=== PATIENT | female | born 1950 | race Caucasian/White ===

== ENCOUNTER 2022-05-23 00:05 | Observation (INO) | payer OTHER ==
[~2022-05-23] VITALS: Ht 162.6 cm; Wt 130.6 kg
[2022-05-23 00:05] VITALS: BP_SYST 138; BP_SYST 180; BP_DIAS 100; BP_DIAS 70
--- NOTE | 2022-05-23 00:05 | NUR ---
TO BED BIBA FROM HOME, WITH C/O CHEST PAIN, PRESSURE RADIATING TO HER LEFT ARM
[2022-05-23 00:34] LABS: BASOPHILS % (AUTO) 0.7 % (0.0-2.0); EOSINOPHILS # (AUTO) 0.1 K/uL (0-0.4); EOSINOPHILS % (AUTO) 2.2 % (0.0-4.0); HEMATOCRIT 40.3 % (36-48); LYMPHOCYTES # (AUTO) 1.4 K/uL (2.5-16.5); LYMPHOCYTES % (AUTO) 23.7 % (20.5-51.1); MEAN CORPUSCULAR HEMOGLOBIN 29 pg (27-31); MEAN CORPUSCULAR HGB CONC 32 g/dL (33-37); MEAN CORPUSCULAR VOLUME 88.4 fL (80-94); MONOCYTES # (AUTO) 0.7 K/uL (0.8-1.0); MONOCYTES % (AUTO) 11.1 % (1.7-9.3); NEUTROPHILS # (AUTO) 3.7 K/uL (1.8-7.7); NEUTROPHILS % (AUTO) 62.3 % (42.2-75.2); PLATELET COUNT (AUTO) 194 K/uL (140-450); RED BLOOD CELL COUNT(AUTO) 4.55 MIL/uL (4.20-5.40); RED CELL DISTRIBUTION WIDTH 15.8 % (11.6-13.7); WHITE BLOOD COUNT (AUTO) 5.9 K/uL (4.8-10.8)
--- NOTE | 2022-05-23 00:43 | NUR ---
XRAY AND EKG DONE AT BEDSIDE
--- NOTE | 2022-05-23 00:44 | NUR ---
PT IN ROOM 8 IN GOWN . 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
[2022-05-23 00:55] LABS: ALBUMIN 3.4 g/dL (3.4-5.0); ASPARTATE AMINOTRANSFERASE 16 U/L (15-37); CARBON DIOXIDE 27.7 mmol/L (21-32); CHLORIDE 107 mmol/L (98-107); CREATININE 0.8 mg/dL (0.6-1.3); GLUCOSE 99 mg/dL (74-106); POTASSIUM 3.7 mmol/L (3.5-5.1); SODIUM SERUM 140 mmol/L (136-145); TOTAL BILIRUBIN 0.6 mg/dL (0.0-1.0); UREA NITROGEN, BLOOD 17 mg/dL (7-18)
--- NOTE | 2022-05-23 01:34 | NUR ---
72YR OLD FEMALE BIB EMS C/O CP UPPER GASTRIC PAIN X1DAY. PT IS A&OX4 . STATES CP STARTED TONIGHT WHILE AT REST. DENIES SOB. GAEL LOWER EXTREMITY EDEMA 2+ NON PITTING . SKIN WARM PINK DRY. RESP EVEN AND UNLABORED. CP RADAITES TO LEFT ARM. DENIES N/V. HOB ELEVATED. BED AT LOWEST POSITION.
[2022-05-23] MEDS ORDERED: NITROGLYCERIN 2% 1 GM PKT TP ONE (02:00)
[2022-05-23] MEDS ORDERED: ENOXAPARIN 120 MG/0.8 ML SYR SUBQ ONE (02:00)
[2022-05-23] MEDS ORDERED: ASPIRIN 325 MG TAB PO ONE (02:00)
--- NOTE | 2022-05-23 02:47 | NUR ---
ADMISSION FOR TELE.
[2022-05-23] MEDS: SIMETHICONE 40 MG/0.6 ML PO ONE ×2 (02:55→07:03)
[2022-05-23] MEDS ORDERED: SIMETHICONE 40 MG/0.6 ML ONE (05:14)
--- NOTE | 2022-05-23 07:01 | NUR ---
22G IV CATH PLACED L FOREARM
[2022-05-23] MEDS ORDERED: AMLO10TA89 PO (07:13)
[2022-05-23] MEDS ORDERED: NITROGLYCERIN 0.4 MG TAB SL PRN (07:15)
[2022-05-23] MEDS ORDERED: ZOLPIDEM 5 MG TAB PO PRN (07:15)
[2022-05-23] MEDS ORDERED: MORPHINE SULFATE 2 MG/ML SYR IVP PRN ×2 (07:15)
[2022-05-23] MEDS ORDERED: LORazepam 1 MG TAB PO PRN (07:15)
--- NOTE | 2022-05-23 07:27 | NUR ---
Recieved report from ANAIS Arcos for transfer of care.
[2022-05-23 08:00] LABS: PROTHROMBIN TIME 9.9 secs (10.8-13.4)
--- NOTE | 2022-05-23 08:32 | NUR ---
Patient was offered her breakfast tray, patient is sitting up eating breakfast.
[2022-05-23] MEDS ORDERED: amLODIPine 5 MG TAB PO SCH (09:00)
--- NOTE | 2022-05-23 09:28 | NUR ---
Patient ambulated to the restroom with steady gait.
--- NOTE | 2022-05-23 09:31 | NUR ---
Urine sample obtained, walked to lab.
--- NOTE | 2022-05-23 10:08 | NUR ---
Patient is resting in bed, respirations even and unlabored. No signs of distress noted. Needs met by staff.
[2022-05-23] MEDS: ACETAMINOPHEN 325 MG TAB PO PRN ×2 (10:28→19:09)
--- NOTE | 2022-05-23 10:48 | NUR ---
Patient ambulated to restroom with steady gait.
--- NOTE | 2022-05-23 11:57 | NUR ---
Patient was offered her lunch tray. Patient is sitting up eating lunch.
--- NOTE | 2022-05-23 12:46 | NUR ---
Patient ambulated to restroom with steady gait.
[2022-05-23] MEDS ORDERED: SODIUM CHLORIDE FLUSH 10 ML SYR IVF SCH (13:00)
--- NOTE | 2022-05-23 14:45 | NUR ---
Patients IV is no longer patent. Placed new 22G on Left Hand. Patient tolerated well.
--- NOTE | 2022-05-23 15:36 | NUR ---
Patient ambulated to restroom with steady gait.
--- NOTE | 2022-05-23 15:48 | NUR ---
PATIENT HAS BEEN SCREENED AND CATEGORIZED LOW NUTRITION RISK. PATIENT WILL BE SEEN WITHIN 7 DAYS OF ADMISSION. 05/29/[address]
[2022-05-23] MEDS ORDERED: LOSA50TA1 PO (17:26)
--- NOTE | 2022-05-23 17:26 | NUR ---
Spoke to Dr. eBarden patient is ok to discharge. MD will input orders himself.
--- NOTE | 2022-05-23 19:10 | NUR ---
Patient was offered her dinner tray, patient is sitting up on bed.
--- NOTE | 2022-05-23 19:18 | NUR ---
Patient report given to BINU Aguero. Transfer of care at this time.
[2022-05-23 19:49] VITALS: BP 141/80
[2022-05-23] MEDS ORDERED: ATORVASTATIN 20 MG TAB PO SCH (21:00)
[2022-05-24] MEDS ORDERED: LOSARTAN 50 MG TAB PO SCH (09:00)
[2022-05-24] MEDS ORDERED: ECOTRIN 81 MG TABEC PO SCH (09:00)
== END 2022-05-23 22:32 | disposition home or self-care (01) ==
LOC: MED 00:05 → MTU 06:14
PROVIDERS: ADMIT Internal Medicine; ATTEND Internal Medicine
DX: R07.89 Other chest pain (principal); Z20.822 Contact with and (suspected) exposure to COVID-19; I10 Essential (primary) hypertension; E78.5 Hyperlipidemia, unspecified; E66.01 Morbid (severe) obesity due to excess calories; F41.9 Anxiety disorder, unspecified; R06.02 Shortness of breath; Z79.899 Other long term (current) drug therapy; Z88.8 Allergy status to other drugs, medicaments and biological substances
CPT/HCPCS: 36415; 71045; 80053; 83880; 84484; 85025; 85379; 85610; 85730; 87426; 93005; 93307; 96372; 99291; G0378; J1650; Q0092